=== PATIENT | male | born 1950 | race Caucasian/White ===

== ENCOUNTER → 2021-07-24 09:33 | Outpatient (BNVA) | payer OTHER, SELFPAY | PROVIDERS: PCP Family Medicine; Referring Provider Family Medicine; Visit Provider Urology | DX: R97.20 Elevated prostate specific antigen [PSA] (principal); E78.00 Pure hypercholesterolemia, unspecified | CPT/HCPCS: 81003; 84153 ==

== ENCOUNTER → 2022-04-23 13:47 | Outpatient (BNVA) | payer OTHER, SELFPAY | PROVIDERS: PCP Emergency Medicine Emergency Medical Services; Visit Provider Internal Medicine | DX: I48.91 Unspecified atrial fibrillation (principal); F17.200 Nicotine dependence, unspecified, uncomplicated; Z79.01 Long term (current) use of anticoagulants; I49.9 Cardiac arrhythmia, unspecified | CPT/HCPCS: 93005; 99204 ==

== ENCOUNTER 2023-05-12 08:18 | Outpatient (CLI) | payer OTHER, SELFPAY ==
--- NOTE | 2023-05-12 08:21 | USCV_ITS ---
Narciso Guerrero Age: 72 Gender: M : 1950 Exam Date: 05/12/2023 08:51 Ordering Phys: Nura Field DO Technologist: MANPREET [place]am [place] [facility] [place]: AAA Screening HISTORY: Diameter (cm) AP x Transverse x Length Velocity (cm/s) Waveform Prox Aorta: 1.88 x 2.19 x 56.10 Triphasic Mid Aorta: 1.56 x 1.53 x 46.50 Triphasic Distal Aorta: 1.67 x 1.93 x 56.10 Triphasic Right Iliac Prox: 0.91 x 1.06 x 112.60 Triphasic Left Iliac Prox: 0.80 x 1.03 x 121.00 Triphasic Stent Prox Landing x x Aneurysmal Sac Max x x Lt Lat Sac Dim Rt Lat Sac Dim Stent Dist Landing x x Right Iliac Stent x x Left Iliac Stent x x Right Renal Art Left Renal Art FINDINGS: Comparison: none available. Ectatic abdominal aorta with evidence of atherosclerotic plaque noted. No evidence of abdominal aortic or bilateral iliac aneurysm. Normal Doppler flow velocites noted throught the aorta and common iliac arteries. CONCLUSIONS Ectatic abdominal aorta with evidence of atherosclerotic plaque noted. No evidence of abdominal aortic aneurysm. Dr. Toshia Masters DO (Electronically Signed) Final Date: 12 May 2023 09:46 S
== END 2023-05-12 08:19 | disposition home or self-care (01) ==
LOC: RAD 08:18
PROVIDERS: PCP Emergency Medicine Emergency Medical Services; Visit Provider Emergency Medicine Emergency Medical Services
DX: Z13.6 Encounter for screening for cardiovascular disorders (principal); I77.811 Abdominal aortic ectasia; I70.0 Atherosclerosis of aorta
CPT/HCPCS: 76706

== ENCOUNTER → 2023-07-22 14:09 | Outpatient (BNVA) | payer OTHER, SELFPAY | PROVIDERS: PCP Emergency Medicine Emergency Medical Services; Referring Provider Emergency Medicine Emergency Medical Services; Visit Provider Internal Medicine | DX: I48.91 Unspecified atrial fibrillation (principal); Z79.01 Long term (current) use of anticoagulants; F17.200 Nicotine dependence, unspecified, uncomplicated | CPT/HCPCS: 99214 ==

== ENCOUNTER → 2024-01-01 07:49 | Outpatient (BNVA) | payer OTHER, SELFPAY | PROVIDERS: PCP Emergency Medicine Emergency Medical Services; Visit Provider Physician Assistant | DX: M25.561 Pain in right knee (principal); M25.569 Pain in unspecified knee; M79.661 Pain in right lower leg; M17.11 Unilateral primary osteoarthritis, right knee | CPT/HCPCS: 73560; 73565; 73590 ==

== ENCOUNTER 2024-01-01 11:22 | Outpatient (CLI) | payer OTHER, SELFPAY | END 2024-01-01 11:23 | disposition home or self-care (01) | LOC: SPT 11:22 | PROVIDERS: PCP Emergency Medicine Emergency Medical Services; Visit Provider Physician Assistant | DX: Z46.89 Encounter for fitting and adjustment of other specified devices (principal); M25.561 Pain in right knee; M17.11 Unilateral primary osteoarthritis, right knee | CPT/HCPCS: 99203; L1851 ==

== ENCOUNTER → 2024-05-13 13:12 | Outpatient (BNVA) | payer OTHER, SELFPAY | PROVIDERS: PCP Emergency Medicine Emergency Medical Services; Visit Provider Internal Medicine | DX: I48.91 Unspecified atrial fibrillation (principal); Z79.01 Long term (current) use of anticoagulants | CPT/HCPCS: 99214 ==

== ENCOUNTER → 2025-02-21 15:03 | Outpatient (BNVA) | payer OTHER, SELFPAY | PROVIDERS: PCP Emergency Medicine Emergency Medical Services; Visit Provider Internal Medicine | DX: I48.91 Unspecified atrial fibrillation (principal); E78.5 Hyperlipidemia, unspecified; F17.200 Nicotine dependence, unspecified, uncomplicated | CPT/HCPCS: 99214 ==